=== PATIENT | female | born 1945 | race Caucasian/White ===

== ENCOUNTER 2022-06-19 15:29 | Emergency (ER) | payer OTHER ==
[~2022-06-19] VITALS: Ht 152.4 cm; Wt 65.3 kg
[2022-06-19 15:42] VITALS: BP 118/68
--- NOTE | 2022-06-19 15:42 | NUR ---
DIVYA Norton, via gurney to bed 01.
--- NOTE | 2022-06-19 16:21 | NUR ---
xray at bedside
--- NOTE | 2022-06-19 17:05 | NUR ---
dr Aparicio at bedside for evaluation
[2022-06-19] MEDS ORDERED: KETOROLAC 30 MG/ML VIAL IVP ONE (17:15)
[2022-06-19] MEDS ORDERED: IBUP-2213 PO (17:19)
--- NOTE | 2022-06-19 18:52 | NUR ---
Facility will provide transport, eta 45 minutes
[2022-06-19 18:57] VITALS: BP 156/65
--- NOTE | 2022-06-19 19:17 | NUR ---
Pt report given to SONU Fairas. Transfer of care at this time.
--- NOTE | 2022-06-19 19:19 | NUR ---
Patient discharged with v/s stable. Written and verbal after care instructions given and explained. Patient alert, oriented and verbalized understanding of instructions. Ambulance Transport with to alf. All questions addressed prior to discharge. ID band removed. Patient advised to follow up with PMD. Rx of IBUPROFEN given. Patient educated on indication of medication including possible reaction and side effects. Opportunity to ask questions provided and answered.
== END 2022-06-19 19:19 | disposition home or self-care (01) ==
LOC: EDSEX 15:29 → MED 15:29
DX: S40.012A Contusion of left shoulder, initial encounter (principal); S40.011A Contusion of right shoulder, initial encounter; F03.90 Unspecified dementia, unspecified severity, without behavioral disturbance, psychotic disturbance, mood disturbance, and anxiety; Z90.710 Acquired absence of both cervix and uterus; Z90.89 Acquired absence of other organs; X58.XXXA Exposure to other specified factors, initial encounter; Y93.89 Activity, other specified; Y92.89 Other specified places as the place of occurrence of the external cause; Y99.8 Other external cause status
CPT/HCPCS: 73030; 96374; 99283; J1885; Q0092

== ENCOUNTER 2022-09-06 19:47 | Emergency (ER) | payer OTHER ==
[~2022-09-06] VITALS: Ht 152.4 cm; Wt 73.5 kg
[~2022-09-06 19:47] MED LIST: IBUP-2213 PO
[2022-09-06 19:50] VITALS: BP 134/66
--- NOTE | 2022-09-06 19:52 | NUR ---
PT AZUCENA ALS. TAKEN TO BED 3
--- NOTE | 2022-09-06 20:22 | NUR ---
77 yo f ronal from [facility] with c/c of chest pain. pt has history of dementia, a&o x3. ems states when they arrived pt stated she did not have chest pain and made it up. ems states 12-lead was clean, they gave 3 rounds of nitro with relief as well as 324mg asa. hx:dementia, metabolic encephalopathy, muscle wasting, anxiety disorder, depression, psychotic disorder, acute kidney failure nka
--- NOTE | 2022-09-06 20:47 | NUR ---
SON AT BEDSIDE
--- NOTE | 2022-09-06 21:19 | NUR ---
LAB AT BEDSIDE
[2022-09-06 21:24] LABS: BASOPHILS # (AUTO) 0.1 K/uL (0.00-0.22); BASOPHILS % (AUTO) 0.7 % (0.0-2.0); EOSINOPHILS # (AUTO) 0.4 K/uL (0-0.4); EOSINOPHILS % (AUTO) 3.9 % (0.0-4.0); HEMATOCRIT 37.6 % (36-48); HEMOGLOBIN 12.2 g/dL (12.0-16.0); LYMPHOCYTES # (AUTO) 1.4 K/uL (2.5-16.5); LYMPHOCYTES % (AUTO) 13.5 % (20.5-51.1); MEAN CORPUSCULAR HEMOGLOBIN 29 pg (27-31); MEAN CORPUSCULAR HGB CONC 32 g/dL (33-37); MEAN CORPUSCULAR VOLUME 88.1 fL (80-94); MONOCYTES # (AUTO) 0.9 K/uL (0.8-1.0); MONOCYTES % (AUTO) 8.3 % (1.7-9.3); NEUTROPHILS # (AUTO) 7.6 K/uL (1.8-7.7); NEUTROPHILS % (AUTO) 73.6 % (42.2-75.2); PLATELET COUNT (AUTO) 344 K/uL (140-450); RED BLOOD CELL COUNT(AUTO) 4.27 MIL/uL (4.20-5.40); RED CELL DISTRIBUTION WIDTH 13.4 % (11.6-13.7); WHITE BLOOD COUNT (AUTO) 10.3 K/uL (4.8-10.8)
[2022-09-06 21:44] LABS: ALBUMIN 2.8 g/dL (3.4-5.0); ANION GAP 11.8 (8-16); ASPARTATE AMINOTRANSFERASE 15 U/L (15-37); CARBON DIOXIDE 26.4 mmol/L (21-32); CHLORIDE 105 mmol/L (98-107); CREATININE 1.1 mg/dL (0.6-1.3); GLUCOSE 104 mg/dL (74-106); POTASSIUM 4.2 mmol/L (3.5-5.1); SODIUM SERUM 139 mmol/L (136-145); TOTAL BILIRUBIN 0.4 mg/dL (0.0-1.0); UREA NITROGEN, BLOOD 29 mg/dL (7-18)
--- NOTE | 2022-09-06 21:48 | NUR ---
CHANGED AND REPOSITIONED PATIENT.
--- NOTE | 2022-09-06 22:27 | NUR ---
Dr. Aparicio examining patient.
[2022-09-06] MEDS ORDERED: diphenhydrAMINE 50 MG CAP PO ONE (22:55)
--- NOTE | 2022-09-06 23:08 | NUR ---
LAB AT BEDSIDE
--- NOTE | 2022-09-07 00:05 | NUR ---
BARRETT RAN [phone], WOULD LIKE TO BE NOTIFIED WITH TRANSPORTATION INFORMATION.
[2022-09-07] MEDS ORDERED: LORazepam 1 MG TAB PO ONE (01:35)
--- NOTE | 2022-09-07 01:55 | NUR ---
PATIETN CRYING/AGITATED ASKING WHERE IS MY SON. ERMD DARRON AWARE.
--- NOTE | 2022-09-07 02:11 | NUR ---
PATIENT CRYING, AGITATED SCREAMING "WHERES THE PEST CONTROL OPERATOR".
--- NOTE | 2022-09-07 03:19 | NUR ---
PATIENT RESTING IN BED WITH EYES CLOSED. RR APPEAR TO BE EVEN AND UNLABORED. DOESNT APPEAR TO BE DISTRESS. BED LOW AND LOCKED. ALL NEEDS MET.
--- NOTE | 2022-09-07 05:00 | NUR ---
CHANGED AND REPOSITIONED PATIENT. TOLERATED WELL.
--- NOTE | 2022-09-07 06:21 | NUR ---
CALLED [facility]. STATED THAT THEY CAN MAYBE ARRANGE TRANSPORTATION BUT NOT AFTER 8AM.
--- NOTE | 2022-09-07 07:14 | NUR ---
REPORT GIVEN TO SONU ASHLEY. TRANSFER OF CARE.
--- NOTE | 2022-09-07 07:15 | NUR ---
Toni owens in ED - 09/07/22 at 0717 by CAROLEE REPORT RECEIVED FROM AYAD ASCENCIO, TRANSFER OF CARE AT THIS TIME, RECEIVED PT IN BED, EYES CLOSED, RESPIRATIONS EVEN AND UNLABORED, ON CARDIAC MONIOR RUNNING NS 100CC/HR
--- NOTE | 2022-09-07 07:17 | NUR ---
REPORT RECEIVED FROM AYAD ASCENCIO, TRANSFER OF CARE AT THIS TIME
--- NOTE | 2022-09-07 08:01 | NUR ---
CALLED SARAHY TRIPATHI/Alisha FOR [facility]
--- NOTE | 2022-09-07 08:18 | NUR ---
PT TURNED, CHANGED INTO A GOWN AND DIAPER CHANGED
[2022-09-07] MEDS ORDERED: HALOPERIDOL IM 5 MG/ML VIAL IM ONE (08:35)
--- NOTE | 2022-09-07 08:48 | NUR ---
SPOKE TO MAISHA ASCENCIO OF [facility], INFORMED OF PT STATUS AND DISCHARGE
[2022-09-07 09:12] VITALS: BP 132/75
--- NOTE | 2022-09-07 09:15 | NUR ---
Patient discharged with v/s stable. Written and verbal after care instructions given and explained. Patient alert, oriented and verbalized understanding of instructions. Ambulance Transport with to senior living. All questions addressed prior to discharge. ID band removed. Patient advised to follow up with PMD.NO Rx given. Patient educated on indication of medication including possible reaction and side effects. Opportunity to ask questions provided and answered.
== END 2022-09-07 09:15 ==
LOC: MED 19:47
DX: R07.9 Chest pain, unspecified (principal); Z20.822 Contact with and (suspected) exposure to COVID-19; N18.9 Chronic kidney disease, unspecified; F03.90 Unspecified dementia, unspecified severity, without behavioral disturbance, psychotic disturbance, mood disturbance, and anxiety
CPT/HCPCS: 36415; 71045; 80053; 84484; 85025; 87426; 93005; 96372; 99285; J1630; Q0092; Q0163

== ENCOUNTER 2022-11-01 12:08 | Inpatient (IN) | payer OTHER ==
[~2022-11-01] VITALS: Ht 165.1 cm; Wt 63.0 kg
--- NOTE | 2022-11-01 12:10 | NUR ---
urine collected as per order awaiting for result.
--- NOTE | 2022-11-01 12:16 | NUR ---
Patient BIBA to bed 11.
[2022-11-01 12:23] VITALS: BP 125/68
[2022-11-01] MEDS ORDERED: cefTRIAXone 1,000 MG in DEXT 5% MINI-BAG PLUS 50 ML IV ONE (12:30)
--- NOTE | 2022-11-01 12:33 | NUR ---
PATIENT AZUCENA FROM [facility], FOR INCREASE AMS X 3 DAYS NON VERBAL AT THIS TIME MOURNING, PLACE IN ROOM 11 ON MOBILE THERAPIST WITH SIN[employer] SAMMY, AWAITING FOR EDP FOR INITIAL ASSESSMENT.
[2022-11-01 12:56] LABS: BASOPHILS # (AUTO) 0.1 K/uL (0.00-0.22); BASOPHILS % (AUTO) 0.6 % (0.0-2.0); EOSINOPHILS # (AUTO) 0.3 K/uL (0-0.4); EOSINOPHILS % (AUTO) 2.9 % (0.0-4.0); HEMATOCRIT 39.5 % (36-48); HEMOGLOBIN 12.9 g/dL (12.0-16.0); LYMPHOCYTES # (AUTO) 1.2 K/uL (2.5-16.5); LYMPHOCYTES % (AUTO) 13.1 % (20.5-51.1); MEAN CORPUSCULAR HEMOGLOBIN 28 pg (27-31); MEAN CORPUSCULAR HGB CONC 33 g/dL (33-37); MONOCYTES # (AUTO) 0.8 K/uL (0.8-1.0); MONOCYTES % (AUTO) 8.1 % (1.7-9.3); NEUTROPHILS # (AUTO) 7.1 K/uL (1.8-7.7); NEUTROPHILS % (AUTO) 75.3 % (42.2-75.2); PLATELET COUNT (AUTO) 410 K/uL (140-450); RED BLOOD CELL COUNT(AUTO) 4.59 MIL/uL (4.20-5.40); RED CELL DISTRIBUTION WIDTH 14.3 % (11.6-13.7); WHITE BLOOD COUNT (AUTO) 9.5 K/uL (4.8-10.8)
[2022-11-01] MEDS ORDERED: cefTRIAXone 1,000 MG VIAL ONE (13:25)
[2022-11-01 13:26] LABS: ALBUMIN 2.4 g/dL (3.4-5.0); ANION GAP 12.4 (8-16); ASPARTATE AMINOTRANSFERASE 22 U/L (15-37); CARBON DIOXIDE 27.2 mmol/L (21-32); CHLORIDE 104 mmol/L (98-107); CREATININE 1.1 mg/dL (0.6-1.3); GLUCOSE 92 mg/dL (74-106); POTASSIUM 4.6 mmol/L (3.5-5.1); SODIUM SERUM 139 mmol/L (136-145); TOTAL BILIRUBIN 0.3 mg/dL (0.0-1.0); UREA NITROGEN, BLOOD 26 mg/dL (7-18)
[2022-11-01 13:52] LABS: APPEARANCE,URINE HAZY (CLEAR); BILIRUBIN,URINE NEGATIVE (NEGATIVE); BLOOD, URINE NEGATIVE (NEGATIVE); COLOR,URINE YELLOW (YELLOW); LEUKOCYTE ESTERASE ,URINE NEGATIVE (NEGATIVE); NITRITE, URINE NEGATIVE (NEGATIVE); UGLUCOSE NEGATIVE (NEGATIVE)
[2022-11-01] MEDS ORDERED: ONDANSETRON 4 MG/2 ML VIAL IVP PRN (17:30)
[2022-11-01] MEDS ORDERED: LORazepam 2 MG/ML VIAL IVP PRN (17:30)
[2022-11-01] MEDS ORDERED: NACL 0.9% 1,000 ML IV SCH (17:30)
--- NOTE | 2022-11-01 20:43 | NUR ---
PT BARRETT NAVARRO LEFT CONTACT INFO
[2022-11-01] MEDS ORDERED: PIPERACILLIN/TAZOBACTAM 2.25 GM VIAL IV ONE (23:31)
--- NOTE | 2022-11-01 23:37 | NUR ---
RENEE FROM [facility] CALLED TO CONFIRM ADMISSION
[2022-11-01] MEDS: PIPERACILLIN/TAZOBACTAM 2.25 GM in DEXTROSE 5% 50 ML IV SCH (23:45)
[2022-11-02] MEDS: PIPERACILLIN/TAZOBACTAM 2.25 GM in DEXTROSE 5% 50 ML IV SCH ×3 (05:00→22:30)
[2022-11-02] MEDS ORDERED: PIPERACILLIN/TAZOBACTAM 2.25 GM VIAL IV ONE ×2 (06:08→13:07)
--- NOTE | 2022-11-02 07:35 | NUR ---
REPORT RECEIVED FROM KINGA ASCENCIO. ASSUMED CARE AT THIS TIME
--- NOTE | 2022-11-02 07:35 | NUR ---
Report given to Zandra KEE for transfer of care
[2022-11-02 07:40] LABS: BASOPHILS % (AUTO) 0.5 % (0.0-2.0); EOSINOPHILS # (AUTO) 0.4 K/uL (0-0.4); EOSINOPHILS % (AUTO) 4.1 % (0.0-4.0); HEMATOCRIT 38.9 % (36-48); HEMOGLOBIN 12.9 g/dL (12.0-16.0); LYMPHOCYTES # (AUTO) 1.2 K/uL (2.5-16.5); LYMPHOCYTES % (AUTO) 13.5 % (20.5-51.1); MEAN CORPUSCULAR HEMOGLOBIN 28 pg (27-31); MEAN CORPUSCULAR HGB CONC 33 g/dL (33-37); MEAN CORPUSCULAR VOLUME 85.6 fL (80-94); MONOCYTES # (AUTO) 0.7 K/uL (0.8-1.0); MONOCYTES % (AUTO) 7.9 % (1.7-9.3); NEUTROPHILS # (AUTO) 6.5 K/uL (1.8-7.7); PLATELET COUNT (AUTO) 387 K/uL (140-450); RED BLOOD CELL COUNT(AUTO) 4.55 MIL/uL (4.20-5.40); RED CELL DISTRIBUTION WIDTH 13.9 % (11.6-13.7); WHITE BLOOD COUNT (AUTO) 8.8 K/uL (4.8-10.8)
--- NOTE | 2022-11-02 10:19 | NUR ---
MD MICHAEL MADE AWARE OF PT BP. PENDING ORDERS.
--- NOTE | 2022-11-02 12:37 | NUR ---
# 16 FR NG tube placed to R nare. Placement checked by auscultation of instilled air into stomach and aspiration of gastric contents. Tubing taped in place to prevent dislodging. Patient tolerated WELL.
--- NOTE | 2022-11-02 13:27 | NUR ---
X-Ray at bedside.
[2022-11-02] MEDS ORDERED: ACETAMINOPHEN 325 MG TAB PO PRN (14:30)
[2022-11-02] MEDS ORDERED: HYDROcodone/APAP 7.5/325 MG 1 TAB PO PRN (14:30)
[2022-11-02] MEDS ORDERED: ONDANSETRON 4 MG/2 ML VIAL IVP PRN (14:30)
--- NOTE | 2022-11-02 14:32 | NUR ---
BP 199/104. DR MICHAEL CONTACTED, STATED SHE WILL PUT IN ORDERS. NO BP MEDS IN HOME LIST.
[2022-11-02] MEDS ORDERED: ZINC50TA58 PO (14:36)
[2022-11-02] MEDS ORDERED: TRAM50TA3 PO (14:36)
[2022-11-02] MEDS ORDERED: NITR0.4T94 SL (14:36)
[2022-11-02] MEDS ORDERED: METOPROLOL 25 MG TAB PO SCH (14:36)
[2022-11-02] MEDS ORDERED: ALPR0.5T2 PO (14:37)
[2022-11-02] MEDS ORDERED: FLONAS NS (14:42)
[2022-11-02] MEDS ORDERED: HYDR-1093 PO (14:42)
[2022-11-02] MEDS ORDERED: ARIP2TAB2 PO (14:42)
[2022-11-02] MEDS ORDERED: IBUP-2213 PO (14:49)
[2022-11-02] MEDS ORDERED: OXYB5TAB44 PO (14:49)
[2022-11-02] MEDS ORDERED: ACET-2619 PO (14:50)
[2022-11-02] MEDS ORDERED: CLOB0.0521 TP (14:51)
[2022-11-02] MEDS ORDERED: DIPH25TA53 PO (14:52)
[2022-11-02] MEDS ORDERED: MAGN400S60 PO (14:53)
[2022-11-02] MEDS: NACL 0.9% 1,000 ML IV SCH (14:59)
--- NOTE | 2022-11-02 15:00 | NUR ---
WRITTEN ORDERS RECEIEVED FROM MD MICHAEL. ORDERS CONFIRMED AND CARRIED OUT. LABETALOL 10MG IVP ONCE
[2022-11-02] MEDS ORDERED: LABETALOL 20 MG/4 ML VIAL IVP SCH (15:05)
[2022-11-02 15:22] LABS: PROTHROMBIN TIME 11.1 secs (10.8-13.4)
[2022-11-02 15:43] LABS: CHOL/HDL RATIO 5.9 (1-4.5); FREE T4 (FREE THYROXINE) 1.38 ng/dL (0.76-1.46); THYROID STIMULATING HORMONE 1.18 uIU/mL (0.34-3.74)
--- NOTE | 2022-11-02 15:55 | NUR ---
DC PLANNING PER NOTES, PT IS NONVERBAL THEREFORE, [facility] OUTREACHED TO [facility] TO GATHER COLLATERAL INFORMATION. SPOKE WITH SORAYA, FORMING PRESS OPERATOR WHO REPORTS PT IS IN RETIREMENT CARE WITH FACILITY, ADMISSION DATE 12/10/21. SORAYA IDENTIFIES RAN SON, /[phone] AND MICHELLE, DAUGHTER, PTS EMERGENCY CONTACTS. PT IS REPORTED TO BE WC BOUND AND REQUIRES ASSISTANCE WITH ALL ADL'S. SORAYA REPORTS PT AT BASELINE IS VERBAL AND WAS ABLE TO MAKE NEEDS KNOWN, HOWEVER, OF RECENT IS NONVERBAL AND DOES NOT RESPOND TO VERBAL PROMPTS. PT IS REPORTED TO UTILIZES HOME O2-2L. PT HAS MENTAL HLTH HX OF ANXIETY, DEPRESSION, PSYCHOTIC D/O WIT DELUSIONS. PT MEETS WITH PSYCHIATRIST DR. AMAYA 1X MONTHLY AND THERAPIST 2X MONTHLY. SORAYA DENIES PT HAS HX OF DIABETES AND DIALYSIS TX. PT IS REPORTED TO BE COMPLIANT WITH CARE, AND IS FOLLOWED BY ALEC YANEZ AT FACILITY. DC PLAN IS FOR PT TO RETURN TO [facility] WHEN MEDICALLY STABLE. SORAYA REPORTS BEING CONTACT WITH PTS FAMILY AND REPORTS FAMILY IS AWARE PT IS ADMITTED TO [facility]. PTS SON IS REPORTED TO BE HIGHLY INVOLVED IN PTS CARE. Addendum: 11/02/22 at 1558 by Aixa MCCLENDON Amended: Links added. Addendum: 11/04/22 at 1102 by Aixa Colbert SS FIELDED CALL FROM ELAINE WITH [facility],[phone] . ELAINE REQUESTING REFERRAL PACKET SHE HAS MEETING WITH PT'S SON. REFERRAL PACKET FAXED TO [phone]
--- NOTE | 2022-11-02 15:58 | NUR ---
Patient will be admitted to care of MD COPELAND. Admited to TELE. Will go to room 112A. Belongings list completed. Report to FATIMAH ASCENCIO .
--- NOTE | 2022-11-02 16:09 | NUR ---
PATIENT HAS BEEN SCREENED AND CATEGORIZED HIGH NUTRITION RISK. PATIENT WILL BE SEEN WITHIN 1-2 DAYS OF ADMISSION. REVIEWED BY KIRA GAMBOA RD
--- NOTE | 2022-11-02 16:14 | NUR ---
REPORT RECEIVED FROM ER NURSE. PT NONVERBAL, NODS TO QUESTIONS. PT NODS NO WHEN ASKED IF PT IS IN ANY PAIN. NO SOB NOTED. NGT ON R NARE. L WRIST #20 SL. HOB ELEVATED. SPOKE WITH TIFFANIE (CHARGE NURSE) FROM [facility] AND STATES PT HAS BEEN ALTERED FOR ABOUT 3 DAYS. HX PROVIDED. NEEDS ALL MET AT THIS TIME. ALL SAFETY MEASURES IN PLACE.
--- NOTE | 2022-11-02 16:30 | NUR ---
98.0, 65, 18, 158/87, 97% RA. PT NODS NO WHEN ASKED IF PT IS IN PAIN. DENIES, HEADACHE, DIZZINESS, NAUSEA. HOB ELEVATED. NG TUBE ON R NARES. NO SOB NOTED. NEEDS ALL MET. ALL SAFETY MEASURES IN PLACE.
[2022-11-02 17:08] VITALS: BP 158/87
--- NOTE | 2022-11-02 19:24 | NUR ---
REPORT GIVEN TO NIGHTSRIFT NURSE TED FOR CONTINUITY OF CARE.
--- NOTE | 2022-11-02 19:30 | NUR ---
RECEIVED REPORT FROM DAY SHIFT NURSE FATIMAH FOR CONTINUITY OF CARE. PATIENT IS A&O X1, NON-VERBAL. PATIENT IS ON ROOM AIR, BREATHING IS NORMAL WITH SYMMETRICAL RISE AND FALL OF CHEST. IV IS A 20G LEFT WRIST; NO FLUIDS RUNNING AT THIS TIME. PATIENT HAS FEEDING. FEEDING NOT RUNNING AT THIS TIME. PATIENT HAS NG-TUBE. WILL ASSESS NG-TUBE AND START FEEDING. PATIENT IS LYING HIGH-FOWLERS. WILL CONTINUE TO OBSERVE PATIENT.
[2022-11-02 20:00] VITALS: BP 175/92
[2022-11-02] MEDS ORDERED: lisinopriL 20 MG TAB NG SCH (20:35)
[2022-11-02] MEDS: METOPROLOL 25 MG TAB PO SCH (21:00)
[2022-11-02] MEDS: DOCUSATE SODIUM 100 MG GELCAP PO SCH (21:00)
[2022-11-03] VITALS: BP 163/101
--- NOTE | 2022-11-03 | NUR ---
ATTEMPTED TO GIVE PATIENT 2100 MEDICATIONS AND LISINOPRIL FOR HIGH BP; BUT PATIENT PULLED OUT NG TUBE. PLACED NEW NG TUBE INTO PATIENT WITH ASSISTANCE FROM NURSE BHUMI. ORDERED STAT X-RAY TO VERIFY PLACEMENT OF NG-TUBE. X-RAY WAS DONE, PENDING RESULTS.
[2022-11-03 04:00] VITALS: BP 136/80
--- NOTE | 2022-11-03 04:33 | NUR ---
RECEIVED REPORT FROM RADIOLOGY ON G-TUBE PLACEMENT. G-TUBE IS PROPERLY PLACED IN STOMACH. ADMINISTERED 2100 MEDICATION METOPROLOL AND LISINOPRIL FOR HIGH BLOOD PRESSURE. PATIENT TOLERATED WELL. WILL CONTINUE TO OBSERVE PATIENT.
[2022-11-03] MEDS: PIPERACILLIN/TAZOBACTAM 2.25 GM in DEXTROSE 5% 50 ML IV SCH ×2 (05:20→13:00)
[2022-11-03 07:29] LABS: ANION GAP 13.7 (8-16); CARBON DIOXIDE 26.3 mmol/L (21-32); CHLORIDE 100 mmol/L (98-107); GLUCOSE 119 mg/dL (74-106); SODIUM SERUM 136 mmol/L (136-145); UREA NITROGEN, BLOOD 21 mg/dL (7-18)
--- NOTE | 2022-11-03 07:30 | NUR ---
ENDORSED TO DAY SHIFT NURSE JOSE RAUL FOR CONTINUITY OF CARE. PATIENT IS STABLE.
[2022-11-03 07:33] LABS: BASOPHILS # (AUTO) 0.1 K/uL (0.00-0.22); BASOPHILS % (AUTO) 0.7 % (0.0-2.0); EOSINOPHILS # (AUTO) 0.2 K/uL (0-0.4); EOSINOPHILS % (AUTO) 1.4 % (0.0-4.0); HEMATOCRIT 39.3 % (36-48); HEMOGLOBIN 13.4 g/dL (12.0-16.0); LYMPHOCYTES # (AUTO) 0.9 K/uL (2.5-16.5); LYMPHOCYTES % (AUTO) 8.6 % (20.5-51.1); MEAN CORPUSCULAR HEMOGLOBIN 28 pg (27-31); MEAN CORPUSCULAR HGB CONC 34 g/dL (33-37); MEAN CORPUSCULAR VOLUME 82.6 fL (80-94); MONOCYTES # (AUTO) 0.7 K/uL (0.8-1.0); MONOCYTES % (AUTO) 6.5 % (1.7-9.3); NEUTROPHILS # (AUTO) 9.1 K/uL (1.8-7.7); NEUTROPHILS % (AUTO) 82.8 % (42.2-75.2); PLATELET COUNT (AUTO) 440 K/uL (140-450); RED BLOOD CELL COUNT(AUTO) 4.76 MIL/uL (4.20-5.40); RED CELL DISTRIBUTION WIDTH 13.8 % (11.6-13.7)
[2022-11-03 07:43] LABS: MAGNESIUM 1.6 mg/dL (1.8-2.4); PHOSPHORUS 3.7 mg/dL (2.5-4.9)
[2022-11-03 08:00] VITALS: BP 110/45
--- NOTE | 2022-11-03 08:15 | NUR ---
GOT REPORT FROM THE NURSE PT IS SLEEPING , NO SOB THE FEEDING INFUSING ORDERED. [id number]
[2022-11-03] MEDS: PANTOPRAZOLE 40 MG INJ VIAL IVP SCH (09:34)
[2022-11-03] MEDS: DOCUSATE SODIUM 100 MG GELCAP PO SCH ×2 (09:35→21:33)
[2022-11-03] MEDS: METOPROLOL 25 MG TAB PO SCH ×2 (09:35→21:34)
[2022-11-03] MEDS: lisinopriL 20 MG TAB NG SCH (09:35)
[2022-11-03] MEDS: NACL 0.9% 1,000 ML IV SCH (09:36)
[2022-11-03 12:00] VITALS: BP 121/76
[2022-11-03 16:00] VITALS: BP 124/66
--- NOTE | 2022-11-03 16:15 | NUR ---
11/03/22 RD INITIAL ASSESSMENT COMPLETED PLEASE REFER TO NUTRITION ASSESSMENT UNDER CARE ACTIVITY FOR ESTIMATED NUTRITIONAL NEEDS. 1. RECOMMEND INCREASING VITAL AF 1.2 GOAL RATE TO 60 ML/HR, FWF 150 ML Q6H TOLERATED - PROVIDES 1440 ML TOTAL VOLUME, 1728 KCAL, 108 GM PROTEIN AND 1768 ML FREE WATER DAILY MEETING 100% ESTIMATED KCAL NEEDS AND >100% ESTIMATED PROTEIN NEEDS; ADEQUATE 2. MONITOR GI SYMPTOMS, GASTRIC RESIDUALS AND NUTRITION RELATED LAB VALUES 3. CONSULT RD PRN 4. RD TO FOLLOW-UP 3-5 DAYS, MODERATE RISK REVIEWED BY KIRA GAMBOA RD
[2022-11-03] MEDS ORDERED: MAG SULF 2000 MG/WATER PREMIX 50 ML IV ONE (18:29)
[2022-11-03] MEDS ORDERED: MAG SULF 2000 MG/WATER PREMIX 50 ML IV SCH (18:30)
--- NOTE | 2022-11-03 18:33 | NUR ---
OVER RIDE THE MAG FOR THE LEVEL OF 1.6 , GIVEN 2G ,MAG IV ORDERED.[id number]
[2022-11-03 20:00] VITALS: BP 126/50
[2022-11-04] VITALS: BP 143/83
[2022-11-04 04:00] VITALS: BP 127/81
[2022-11-04] MEDS: NACL 0.9% 1,000 ML IV SCH (06:54)
[2022-11-04 07:09] LABS: MAGNESIUM 2.2 mg/dL (1.8-2.4)
[2022-11-04 07:17] LABS: CARBON DIOXIDE 28.3 mmol/L (21-32); CHLORIDE 123 mmol/L (98-107); CREATININE 0.9 mg/dL (0.6-1.3); GLUCOSE 130 mg/dL (74-106); UREA NITROGEN, BLOOD 28 mg/dL (7-18)
--- NOTE | 2022-11-04 07:19 | NUR ---
CLOSING NO CHANGE ON STATUS, NO DISTRESS NOTED, REPORT GIVEN TO SONU BUTLER PER SBAR AT BEDSIDE.
--- NOTE | 2022-11-04 07:32 | NUR ---
CLOSING NO CHANGE ON STATUS, NO DISTRESS NOTED, REPORT GIVEN TO SONU LEMONS PER SBAR AT BEDSIDE.
[2022-11-04 07:43] LABS: HEMATOCRIT 37.4 % (36-48); HEMOGLOBIN 12.6 g/dL (12.0-16.0); MEAN CORPUSCULAR HEMOGLOBIN 28 pg (27-31); MEAN CORPUSCULAR HGB CONC 34 g/dL (33-37); MEAN CORPUSCULAR VOLUME 83.9 fL (80-94); PLATELET COUNT (AUTO) 394 K/uL (140-450); RED BLOOD CELL COUNT(AUTO) 4.46 MIL/uL (4.20-5.40); RED CELL DISTRIBUTION WIDTH 13.9 % (11.6-13.7); WHITE BLOOD COUNT (AUTO) 11.2 K/uL (4.8-10.8)
--- NOTE | 2022-11-04 07:47 | NUR ---
11/04/2022 0730: PT RESTING IN BED. NO GUARDING OR GRIMACING NOTED. NO ACUTE DISTRESS NOTED AT THIS TIME. [id number].
[2022-11-04 07:56] LABS: ANION GAP -6.5 (8-16); POTASSIUM 3.8 mmol/L (3.5-5.1); SODIUM SERUM 141 mmol/L (136-145)
[2022-11-04 08:00] VITALS: BP 145/76
[2022-11-04] MEDS: PANTOPRAZOLE 40 MG INJ VIAL IVP SCH (09:09)
[2022-11-04] MEDS: METOPROLOL 25 MG TAB PO SCH (09:09)
[2022-11-04] MEDS: DOCUSATE SODIUM 100 MG GELCAP PO SCH (09:10)
[2022-11-04] MEDS: lisinopriL 20 MG TAB NG SCH (09:10)
[2022-11-04 09:27] LABS: BASOPHILS % (MANUAL) 0 % (0-2); BLASTS, MANUAL % 0 % (0-0); EOSINOPHILS % (MANUAL) 1 % (0-4); LYMPHOCYTES % (MANUAL) 11 % (20-46); METAMYELOCYTES % 0 % (0-0); MONOCYTES % (MANUAL) 9 % (5-12); MYELOCYTES % 0 % (0-0); OTHER CELLS,MANUAL % 0 (0-0); PROMYELOCYTES % 0 % (0-0)
[2022-11-04 09:28] LABS: BUFFY COAT SMEAR PREP N
[2022-11-04] MEDS ORDERED: MUPIROCIN CA NASAL 2% 1GM TUBE NS SCH (10:00)
[2022-11-04] MEDS ORDERED: CHLORHEXADINE GLUC 2% CLOTH TP SCH (10:00)
[2022-11-04 12:00] VITALS: BP 122/62
--- NOTE | 2022-11-04 13:54 | NUR ---
DC PLANNING: PER PATIENT'S CHOICE, SIGNED WITH [facility] AND RETURN TO [facility] CAN GO TO ROOM 11C # TO GIVE REPORT [phone] SHENG FROM [facility] ARRANGED TRANSPORT AND VARNISH FINISHER TIME 6 PM. CM TO FOLLOW
[2022-11-04 16:00] VITALS: BP 124/60
--- NOTE | 2022-11-04 19:24 | NUR ---
PT LEFT TO TO [facility] [place] [facility] [facility], IV AND ID WELL NG TUBE, BUT FLOLEY CATH IN PLACE PER THE HOSPICE REQUEST. [id number]
--- NOTE | 2022-11-10 16:46 | NUR ---
PT DC'D WITH [facility] TO [facility] ON 11/04/22 AT 1930
== END 2022-11-04 19:30 | DRG 640 ==
LOC: MED 12:08 → MTU 17:09
PROVIDERS: ADMIT Family Medicine; ATTEND Family Medicine
DX: E86.0 Dehydration (principal); E43 Unspecified severe protein-calorie malnutrition; G93.41 Metabolic encephalopathy; J44.9 Chronic obstructive pulmonary disease, unspecified; F03.90 Unspecified dementia, unspecified severity, without behavioral disturbance, psychotic disturbance, mood disturbance, and anxiety; R13.10 Dysphagia, unspecified; I70.0 Atherosclerosis of aorta; G93.89 Other specified disorders of brain; I10 Essential (primary) hypertension; E83.42 Hypomagnesemia; Z20.822 Contact with and (suspected) exposure to COVID-19; R73.9 Hyperglycemia, unspecified; Z79.1 Long term (current) use of non-steroidal anti-inflammatories (NSAID); Z79.899 Other long term (current) drug therapy; Z68.23 Body mass index [BMI] 23.0-23.9, adult; Z93.1 Gastrostomy status
CPT/HCPCS: 36415; 70450; 71045; 80048; 80053; 81003; 82140; 82150; 83036; 83605; 83690; 83735; 83880; 84100; 84439; 84443; 84484; 85025; 85610; 85730; 87040; 87081; 87086; 93005; 96365; 99285; C9113; J0696; J2543; J3475; J3490; J7060; Q0092